=== PATIENT | male | born 1950 | race Caucasian/White ===

== ENCOUNTER 2018-09-25 09:37 | Emergency (ER) | payer OTHER ==
[~2018-09-25] VITALS: Ht 162.6 cm; Wt 73.1 kg
[2018-09-25 09:42] VITALS: Ht 162.6 cm; Wt 73.1 kg
[2018-09-25] MEDS ORDERED: DIATR MEGLU/DIATRIZOATE SODIUM 120 ML BTL ONE (10:45)
[2018-09-25] MEDS ORDERED: DIATR MEGLU/DIATRIZOATE SODIUM 30 ML SOLUTION PO ONE (11:00)
--- NOTE | 2018-09-25 13:03 | ERD ---
ER Documentation Chief Complaint Chief Complaint G Tube came out this am. BS 101, pt feels BP &BS is low HPI 67-year-old gentleman history of prior stroke with G-tube who states that his G- tube came out this morning. Patient states that he feels like his blood glucose is low but blood sugar is 101. Patient denies any fevers chills chest pain or shortness of breath. No other issues today. ROS All systems reviewed and are negative except as per history of present illness. PMhx/Soc History of Surgery: Yes (R SALIVARY GLAND SURGERY, SKIN GRAFT, G-TUBE) Smoking Status: Former smoker FmHx Family History: No diabetes Physical Exam Vitals Vital Signs Date Temp Pulse Resp B/P (MAP) Pulse Ox O2 O2 Flow FiO2 Time Delivery Rate 09/25/18 97.5 79 18 (48) 98 09:42 Physical Exam General: Well developed, well nourished, no acute distress Head: Normocephalic, atraumatic. Eyes: EOM intact ENT: Moist mucous membranes Neck: Full ROM Respiratory: No respiratory distress Cardiovascular: Well perfused distally Abdominal: Nondistended, G-tube slightly dislodged but within the office, nontender no rebound or guarding : Deferred MSK: No edema, no unilateral swelling Neurologic: Alert and oriented, normal speech Skin: No rash Psych: Normal mood Results 24 hrs Laboratory Tests Test 09/25/18 09:44 09/25/18 11:31 Bedside Glucose 101 mg/dL 101 mg/dL Current Medications Medications Dose Sig/Errol Start Time Status Last (Trade) Ordered Route PRN Stop Time Admin Dose Reason Admin Diatrizoate 30 ml ONCE ONCE 09/25/18 DC Meglum/ PO 11:00 09/25/18 Diatrizoate 11:01 Sod (Gastrografin 66-10 Solution) Diatrizoate 120 ml STK-MED 09/25/18 DC Meglum/ ONCE .ROUTE 10:45 09/25/18 Diatrizoate 10:46 Sod (Gastrografin 66-10 Solution) Procedures/MDM G Tube Insertion: Consent: Informed consent was provided as we discussed risks, benefits, alternatives. Indication: Malfunctioning G Tube G Tube Size: 18 Belgian Procedure: Sterile procedure was observed. The new G-tube was checked for leaks and was lubricated. Insertion of the new G-tube through stoma was performed without complications and met no resistance. The balloon was then inflated, the tube was pulled back and plastic wheel was adjusted to the skin. The G-tube was then dressed and secured in place. A postplacement x-ray with water-soluble contrast was ordered. There were no complications and the patient tolerated the procedure well. X-ray Abdomen 1V Interpreted by me: Free Air: None Bowel Gas: Intraluminal Gastrografin Soft Tissue: Normal MEDICAL DECISION MAKING: The patient presents needing a replacement of his G-tube. G-tube was replaced. The patient was fed. At this point the patient has no evidence of emergent medi madeleine condition. He can be safely discharged with primary care follow-up. CONSULTATION: None DISPOSITION PLAN: The patient does not have an identifiable emergent medical condition that warrants inpatient hospitalization at this time. The patient is deemed safe for discharge with outpatient follow-up. We discussed follow up with the patient's primary care doctor within 24 to 48 hours as needed. We also discussed return to the emergency room for worsening symptoms or worsening condition. Outpatient referral: None required Discharge Medications: None required Departure Diagnosis: Primary Impression: Encounter for feeding tube placement Condition: Stable Patient Instructions: Feeding Tube Replacement Additional Instructions: Call your primary care doctor TOMORROW for an appointment during the next 1 WEEK.Tell the solution consultant that you were referred from this facility.See the doctor sooner or return here if your condition worsens before your appointment time. LEANN ACHARYA MD Sep 25, 2018 13:03
[2018-09-25 13:05] VITALS: BP 120/50; PULSE 102; RESP 18
== END 2018-09-25 13:05 | disposition home or self-care (01) ==
LOC: E/R 09:37
DX: K94.23 Gastrostomy malfunction (principal)
CPT/HCPCS: 74018; 82962

== ENCOUNTER 2018-12-03 09:47 | Emergency (ER) | payer OTHER ==
[~2018-12-03] VITALS: Ht 165.1 cm; Wt 68.5 kg
[2018-12-03 09:52] VITALS: Ht 165.1 cm; Wt 68.5 kg
[2018-12-03] MEDS ORDERED: METO-336 PO (10:59)
[2018-12-03] MEDS ORDERED: METF100010 PO (11:03)
[2018-12-03] MEDS ORDERED: DIGO250T PO (11:04)
[2018-12-03] MEDS ORDERED: GLIM4TAB PO (11:05)
[2018-12-03] MEDS ORDERED: FENO160T13 PO (11:05)
[2018-12-03] MEDS ORDERED: PIOG30TA71 PO (11:05)
[2018-12-03] MEDS ORDERED: LISI40TA3 PO (11:06)
[2018-12-03] MEDS ORDERED: ATOR10TA65 PO (11:06)
[2018-12-03 11:17] VITALS: BP 105/88; PULSE 72; RESP 19
--- NOTE | 2018-12-06 12:39 | ERD ---
ER Documentation Chief Complaint Chief Complaint wants gtube replacement HPI This is a 67-year-old male with a known history of CVA the presents to the emergency department stating that the Akira valve on his gastrostomy tube is leaking. Patient had no fevers or shaking or chills. He denies any abdominal pain. Indicates that his Akira valve has been leaking for roughly 12 hours. ROS All systems reviewed and are negative except as per history of present illness. Medications Home Meds Reported Medications Lisinopril* (Lisinopril*) 40 Mg Tablet, 40 MG PO DAILY, #30 TAB 12/03/18 Atorvastatin Calcium (Atorvastatin Calcium) 10 Mg Tablet, 10 MG PO QHS, #30 TAB 12/03/18 Pioglitazone Hcl* (Pioglitazone Hcl*) 30 Mg Tablet, 30 MG PO DAILY, TAB 12/03/18 Glimepiride* (Glimepiride*) 4 Mg Tablet, 4 MG PO WITH BREAKFAST, TAB 12/03/18 Fenofibrate, Micronized* (Fenofibrate*) 160 Mg Tablet, 160 MG PO DAILY, TAB 12/03/18 Digoxin* (Digitek*) 250 Mcg Tablet, 0.25 MG PO Q48H, TAB 12/03/18 Metformin Hcl* (Metformin Hcl*) 1,000 Mg Tablet, 1000 MG PO WITH BREAKFAST DINNE, #60 TAB 12/03/18 Metoprolol Succinate* (Toprol XL*) 100 Mg Tab.sr.24h, 100 MG PO BID, #30 TAB 12/03/18 Allergies Allergies: Coded Allergies: No Known Allergy (Unverified , 12/03/18) PMhx/Soc History of Surgery: Yes (R SALIVARY GLAND SURGERY, SKIN GRAFT, G-TUBE) Hx Alcohol Use: No Hx Substance Use: No Hx Tobacco Use: No Smoking Status: Never smoker Physical Exam Vitals Vital Signs Date Temp Pulse Resp B/P (MAP) Pulse Ox O2 O2 Flow FiO2 Time Delivery Rate 12/03/18 98.1 72 19 105/88 100 Room Air 11:17 (94) 12/03/18 98.3 105 20 109/81 96 09:52 (90) Physical Exam Constitutional:Well-developed. Well-nourished. Respiratory: Not using accessory muscles of respiration.Lungs were clear to auscultation bilaterally. No rhonchi. No rales. No wheezing. Cardiovascular: Regular rate regular rhythm.No murmurs. No rubs were appreciated.S1, S2 normal. Distal pulses are palpable 2+ bilaterally. GI: Abdomen was soft. Gastrostomy tube was in place and surrounding ostomy site was clean dry and intact with no purulent drainage. Akira valve was leaking around the connection site of the tubing. Muscle skeletal: Full range of motion of both the upper and lower extremities bilaterally.Normal muscle tone.No assymetrical calf tenderness or swelling. Skin: No petechia, no purpura. No lesions on the palms or the soles of the feet. No maculopapular rash. NEURO: Patient was alert and awake and able to ambulate with a slow steady gait. Patient has difficulty articulating his words due to previous cerebrovascular accident. Procedures/MDM This 67-year-old male presented to the emergency department with complications of his gastrostomy tube. The G-tube however was in good position. The Akira valve was replaced by myself and nursing staff. Afterwards the patient was able to feed without any difficulty and the tube was working. The patient was discharged home in fair condition. They were instructed to return to the emergency department at any time if there was any worsening of their condition. The patient stated they would follow up with their PCP in the next 24-48 hours to initiate a suitable medication regimen under the care of their PCP as well as to allow their PCP to monitor any drug reactions. The patient was discharged home with prescriptions after they gave informed consent to the new medication. They were also fully informed by myself on the adverse effects and adverse drug interactions in order to provide adequate safeguards to prevent possible adverse reactions to medications. Departure Diagnosis: Primary Impression: Encounter for gastrojejunal tube placement Condition: Fair Patient Instructions: Gastrostomy or Gastro-jejunum Tube: Flushing the Tube Referrals: RADHA DOBBINS MD (PCP) DAVID OLIVEIRA MD Dec 06, 2018 12:39
== END 2018-12-03 11:18 | disposition home or self-care (01) ==
LOC: E/R 09:47
DX: Z46.59 Encounter for fitting and adjustment of other gastrointestinal appliance and device (principal); Z79.84 Long term (current) use of oral hypoglycemic drugs; Z86.73 Personal history of transient ischemic attack (TIA), and cerebral infarction without residual deficits
CPT/HCPCS: 99283

== ENCOUNTER 2018-12-11 11:14 | Inpatient (IN) | payer OTHER ==
[~2018-12-11] VITALS: Ht 165.1 cm; Wt 72.4 kg
[2018-12-11] VITALS (25 sets, daily range): BP systolic 82–111; BP diastolic 55–75; PULSE 77–108; RESP 17–32; Ht 165.1 cm; Wt 72.4 kg
[~2018-12-11 11:14] MED LIST: ATOR10TA65 PO; DIGO250T PO; FENO160T13 PO; GLIM4TAB PO; LISI40TA3 PO; METF100010 PO; METO-336 PO; PIOG30TA71 PO
[2018-12-11] MEDS ORDERED: AZITHROMYCIN 500MG/NS (PMX) 250 ML IV STA (12:00)
[2018-12-11] MEDS ORDERED: CEFTRIAXONE 1 GM/50 ML (PMX) 50 ML IVPB STA (12:00)
[2018-12-11] MEDS ORDERED: SODIUM CHLORIDE 0.9% 1L BAG IV* STA (12:21)
[2018-12-11] MEDS ORDERED: SOD CHLORIDE 0.9% 1,000 ML IV STA (13:17)
[2018-12-11] MEDS ORDERED: ALBUTEROL 0.083% (NEB) 2.5 MG/3 ML AMP HHN STA (13:17)
[2018-12-11] MEDS ORDERED: ACETAMINOPHEN 325 MG TAB PO PRN (13:30)
[2018-12-11] MEDS ORDERED: ONDANSETRON 4 MG INJ IV PRN ×3 (13:30→16:00)
[2018-12-11] MEDS ORDERED: IPRATROPIUM (NEB) 0.5 MG/2.5 ML AMP HHN ONE (13:30)
[2018-12-11] MEDS ORDERED: NORepinephrine 8MG/250 ML (PMX 250 ML IV STA (13:58)
[2018-12-11] MEDS ORDERED: LIDOCAINE 1% (MPF) 5 ML VIAL SC ONE (14:00)
--- NOTE | 2018-12-11 14:40 | ERD ---
ER Documentation Chief Complaint Chief Complaint difficulty breathing, cough, fever at home HPI Patient is a 68-year-old male with a history of hypertension and diabetes who presents saying "I have pneumonia and I need suction". The patient said that he has been passing out over the last few weeks as well. He says that he can "feel pneumonia" and had fevers at home. He has had cough for the past few weeks ever since his "cancer surgery". 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 Upon review of old medical records this is the patient's third visit to the ER since September 2018. Review of the emergency department information exchange system shows visits to 2 separate emergency departments for a total of 4 visits over the past 1 year. His doctor is Dr. Chung. ROS All systems reviewed and are negative except as per history of present illness. Medications Home Meds Reported Medications Lisinopril* (Lisinopril*) 40 Mg Tablet, 40 MG PO DAILY, #30 TAB 12/03/18 Atorvastatin Calcium (Atorvastatin Calcium) 10 Mg Tablet, 10 MG PO QHS, #30 TAB 12/03/18 Pioglitazone Hcl* (Pioglitazone Hcl*) 30 Mg Tablet, 30 MG PO DAILY, TAB 12/03/18 Glimepiride* (Glimepiride*) 4 Mg Tablet, 4 MG PO WITH BREAKFAST, TAB 12/03/18 Fenofibrate, Micronized* (Fenofibrate*) 160 Mg Tablet, 160 MG PO DAILY, TAB 12/03/18 Digoxin* (Digitek*) 250 Mcg Tablet, 0.25 MG PO Q48H, TAB 12/03/18 Metformin Hcl* (Metformin Hcl*) 1,000 Mg Tablet, 1000 MG PO WITH BREAKFAST DINNE, #60 TAB 12/03/18 Metoprolol Succinate* (Toprol XL*) 100 Mg Tab.sr.24h, 100 MG PO BID, #30 TAB 12/03/18 Allergies Allergies: Coded Allergies: No Known Allergy (Unverified , 12/11/18) PMhx/Soc History of Surgery: Yes (R SALIVARY GLAND SURGERY, SKIN GRAFT, G-TUBE, tracheo stomy, vocal cords) Hx Cardiac Disorders: Yes (htn, cholesterol) Hx Miscellaneous Medical Probl: Yes (dysphagia) Hx Alcohol Use: No Hx Substance Use: No Hx Tobacco Use: No Smoking Status: Never smoker FmHx Family History: diabetes Physical Exam Vitals Vital Signs Date Temp Pulse Resp B/P (MAP) Pulse Ox O2 O2 Flow FiO2 Time Delivery Rate 12/11/18 97 27 76/47 (57) 3 Nasal 13:45 Cannula 12/11/18 95 24 100 21 13:27 12/11/18 Nasal 3 12:28 Cannula 12/11/18 97.9 94 22 102/57 92 11:20 (72) Physical Exam Const: Moderate distress Head: Atraumatic Eyes: Normal Conjunctiva ENT: Normal External Ears, Nose and Mouth. Neck: Full range of motion. No meningismus. Resp: Rhonchorous breath sounds bilaterally Cardio: Atrial fibrillation with rapid ventricular response Abd: Soft, non tender, non distended. Normal bowel sounds Skin: No petechiae or rashes Back: No midline or flank tenderness Ext: No cyanosis, or edema Neur: Awake and alert, right-sided facial droop ever since his facial surgery Result Diagram: 12/11/18 1228 12/11/18 1228 Results 24 hrs Laboratory Tests Test 12/11/18 12:27 12/11/18 12:28 POC Venous Lactate 1.2 mmol/L White Blood Count 32.0 10^3/ul Red Blood Count 4.80 10^6/ul Hemoglobin 12.9 g/dl Hematocrit 39.7 % Mean Corpuscular Volume 82.7 fl Mean Corpuscular Hemoglobin 26.9 pg Mean Corpuscular Hemoglobin Concent 32.5 g/dl Red Cell Distribution Width 16.4 % Platelet Count 256 10^3/UL Mean Platelet Volume 11.6 fl Immature Granulocytes % 0.600 % Neutrophils % % Segmented Neutrophils % (Manual) 88 % Band Neutrophils % (Manual) 7 % Lymphocytes % % Monocytes % % Monocytes % (Manual) 5 % Eosinophils % % Basophils % % Nucleated Red Blood Cells % 0.0 /100WBC Immature Granulocytes # 0.190 10^3/ul Neutrophils # 10^3/ul Neutrophils # (Manual) 28.9 10^3/ul Band Neutrophils # 2.2 10^3/ul Lymphocytes # 10^3/ul Monocytes # 10^3/ul Monocytes # (Manual) 1.6 10^3/ul Eosinophils # 10^3/ul Basophils # 10^3/ul Nucleated Red Blood Cells # 10^3/ul Platelet Estimate NORMAL Anisocytosis 1+ Microcytosis 1+ Sodium Level 136 mmol/L Potassium Level 4.8 mmol/L Chloride Level 95 mmol/L Carbon Dioxide Level 26 mmol/L Anion Gap 15 Blood Urea Nitrogen 83 mg/dl Creatinine 1.59 mg/dl Est Glomerular Filtrat Rate mL/min 44 mL/min Glucose Level 114 mg/dl Calcium Level 10.3 mg/dl Current Medications Medications Dose Sig/Errol Start Time Status Last (Trade) Ordered Route PRN Stop Time Admin Dose Reason Admin Azithromycin 250 ml @ ONCE STAT 12/11/18 DC 12/11/18 250 mls/hr IV 12:00 13:00 12/11/18 12:59 Ceftriaxone 50 ml @ ONCE STAT 12/11/18 DC 12/11/18 Sodium 100 mls/hr IVPB 12:00 12:41 12/11/18 12:29 Sodium 2,110 ml BOLUS OVER 2 12/11/18 DC 12/11/18 Chloride HOURS STAT 12:21 12:31 (NS) IV* 12/11/18 12:22 Sodium 1,000 ml @ Q1H STAT 12/11/18 DC 12/11/18 Chloride 1,000 mls/hr IV 13:17 14:08 12/11/18 14:16 Albuterol 5 mg ONCE STAT 12/11/18 DC 12/11/18 (Proventil HHN 13:17 13:26 0.083% (Neb)) 12/11/18 13:18 Ipratropium 0.5 mg ONCE ONCE 12/11/18 DC 12/11/18 [place] HHN 13:30 13:26 (Atrovent 12/11/18 13:31 0.02% (Neb)) Ondansetron 4 mg ER BRIDGE 12/11/18 HCl (Zofran PRN IV 13:30 Inj) NAUSEA/VOMITI 12/12/18 13:29 NG 650 mg ER BRIDGE 12/11/18 Acetaminophen PRN PO 13:30 (Tylenol .MILD PAIN 12/12/18 13:29 Tab) 1-3 OR TEMP Lidocaine 5 ml ONCE ONCE 12/11/18 DC (Xylocaine SC 14:00 1% (Mpf)) 12/11/18 14:01 250 ml @ ONCE STAT 12/11/18 Norepinephrin 7.5 mls/hr IV 13:58 e 6/25/19 23:17 Procedures/MDM EKG read by me: Rate/Rhythm: Atrial fibrillation with rapid ventricular response a rate of 106 Intervals: Normal Impression: A. fib with RVR Chest X-ray 1V Interpreted by me: Soft Tissue: No acute abnormalities Bones: No acute abnormalities Mediastinum/Cardiac Silhouette/Lungs: Pneumonia Sepsis Documentation: Patient's infectious symptoms have not stabilized and the patient is at risk of rapid decompensation. The patient will be admitted for careful hydration, antibiotic therapy, and infectious source control. SEVERE SEPSIS CRITERIA: Infectious source: Pneumonia End organ damage indicated by: Hypotension despite fluid bolus SEPSIS MANAGEMENT Time of recognition of sepsis: 1228. Time of recognition of severe sepsis: 1345. Time of recognition of septic shock: 1345. 3 HOUR BUNDLE Blood cultures x 2 before broad-spectrum antibiotics: Yes 30 ml/kg NS bolus completed Initial lactate 1.2 Repeat lactate pending SEPTIC SHOCK ASSESSMENT: No lactic acid > 4.0 Yes Persistent hypotension (SBP < 90 or 40 mmHg drop, MAP < 65) despite 30 mL/kg IV fluid bolus VOLUME REASSESSMENT FOR SEPTIC SHOCK: Reevaluation Time: 1345 Temp 97.9, BP 76/47, HR 97, RR 27, Pox 100% Heart regular rate & rhythm Lungs no crackles Skin warm & dry Cap Refill less than 2 seconds Peripheral pulses radially present PERSISTENT HYPOTENSION TREATMENT: Comfort care no Central line right femoral line placed Vasopressor started levophed Central Line Placement by me: Patient consented, sterilely draped, full prep, gown, glove, mask, time out performed. Anesthesia: 1% lidocaine locally Location: Right femoral Device: Multiple lumen Technique: Seldinger technique. Secured with suture. Results: Venous return from all ports with easy saline flush. No complications. Guide wire retrieved and disposed of. ED Ultrasound: Central line placed by me using concurrent ultrasound guidance. Ultrasound printer not working at this time so images could not be printed. I considered further perfusion assessment with CVP measurement, SCVO2, bedside ultrasound volume assessment, passive leg raise, trial of further fluid bolus. And proceeded with 30 ml/kg fluid bolus of NSS, broad spectrum antibiotics, and admission. The patient will be admitted to the care of the panel team to the intensive care unit given the need for pressors. CRITICAL CARE Critical care time 35 minutes Emergent fluid management while maintaining close respiratory support. Provision of immediate and broad-spectrum antibiotic therapy. Simultaneous assessment for possible sources in order to direct targeted therapy. Consideration for invasive and chemical support to prevent cardiopulmonary collapse. Critical care time is independent of procedures performed. Departure Diagnosis: Primary Impression: Septic shock Additional Impression: Pneumonia Pneumonia type: due to unspecified organism Laterality: unspecified laterality Lung location: unspecified part of lung Qualified Codes: J18.9 - Pneumonia, unspecified organism Condition: Critical MON[place]NA PATEL MD Dec 11, 2018 14:40
[2018-12-11] MEDS ORDERED: VANCOMYCIN IV PER PHARMACY XX SCH (15:30)
[2018-12-11] MEDS ORDERED: MEROPENEM 1 GM/50ML(PMX) 50 ML IVPB SCH (15:30)
[2018-12-11] MEDS ORDERED: VANCOMYCIN HCL 1.5 GM in SOD CHLORIDE 0.9% 250 ML IVPB ONE (16:00)
[2018-12-11] MEDS ORDERED: ACETAMINOPHEN 650MG/20.3ML CUP PO PRN (16:00)
[2018-12-11] MEDS ORDERED: AZITHROMYCIN 500MG/NS (PMX) 250 ML IVPB SCH (16:00)
[2018-12-11] MEDS ORDERED: NORepinephrine 8MG/250 ML (PMX 250 ML IV SCH ×4 (16:00→19:30)
[2018-12-11] MEDS ORDERED: NITROGLYCERIN (SL) 0.4 MG TAB SL PRN (16:00)
[2018-12-11] MEDS ORDERED: NACL 0.9% 3 ML SYG IV SCH (16:00)
[2018-12-11] MEDS ORDERED: IPRATROPIUM (NEB) 0.5 MG/2.5 ML AMP NEB PRN (16:00)
--- NOTE | 2018-12-11 16:18 | HP ---
Date/Time of Note Date/Time of Note DATE: 12/11/18 TIME: 16:04 Assessment/Plan VTE Prophylaxis Pharmacological prophylaxis: heparin Lines/Catheters IV [facility] Saline Lock Assessment/Plan Hospital Course SUBJECTIVE: Seen and evaluated patient in the emergency room 2. Currently not in acute distress. OBJECTIVE: Vital signs-see below PHYSICAL EXAM: Constitutional: Frail looking male,not in acute distress. HEENT: Head atraumatic and normocephalic. Eyes: Extraocular muscles intact. Anicteric sclerae. Pupils equal bilaterally, reactive to light. NECK: +jvp. Supple without lymph node. CHEST: Diminished bibasilar. No wheezing or rales HEART: S1, S2. Regular rate and rhythm. ABDOMEN: Soft/non tender with no rebound tenderness. Bowel sounds were present. EXTREMITIES: No cyanosis, clubbing or edema. NEUROLOGIC: Alert and oriented x3. No focal deficit. No sensory deficit. PSYCHOSOCIAL: No signs of depression. INTEGUMENTARY: No open wounds. ASSESSMENT AND PLAN: 68 yo M w/htn,hld,dm2,salivary gland sx here w/cough/conges tion/weakness found to have sepsis w/septic shock Severe sepsis with septic shock most suspect source:pneumonia -Admit to ICU -Levophed gtt to keep MAP 65 and above -IV fluids-echo to assess EF -broad spectrum abx -cultures -consider ID involvement if no improvement ~24 hrs Pneumonia -bronchodilators -abx (Merrem/vanco +Zithromax for atypical coverage) -f/u Xrays -resp cs -aspiration precaution SCOT likely secondary to sepsis -Fluids -monitor renal fxn DM2 -A1C -basal/bolus HTN -currently hypotensive-Hold antihypertensives Dyslipidemia -on statin Atrial fibrillation -rate controlled -resume dig. hold BB 2/2 hypotension Hx Salivary gland tumor. s/p surgery Incontinence -Insert rodriguez dvt ppx;heparin PUD ppx:Pepcid Rest of the management depend on hospital course Approximately 60mins critical care time spent on this H&P Patient was seen and examined with with above plan. Result Diagram: 12/11/18 1228 12/11/18 1228 Results 24hrs Laboratory Tests Test 12/11/18 12:27 12/11/18 12:28 12/11/18 15:05 POC Venous Lactate 1.2 White Blood Count 32.0 H Red Blood Count 4.80 Hemoglobin 12.9 L Hematocrit 39.7 L Mean Corpuscular Volume 82.7 Mean Corpuscular Hemoglobin 26.9 L Mean Corpuscular Hemoglobin Concent 32.5 Red Cell Distribution Width 16.4 H Platelet Count 256 Mean Platelet Volume 11.6 H Immature Granulocytes % 0.600 H Neutrophils % Segmented Neutrophils % (Manual) 88 H Band Neutrophils % (Manual) 7 H Lymphocytes % Monocytes % Monocytes % (Manual) 5 Eosinophils % Basophils % Nucleated Red Blood Cells % 0.0 Immature Granulocytes # 0.190 H Neutrophils # Neutrophils # (Manual) 28.9 H Band Neutrophils # 2.2 H Lymphocytes # Monocytes # Monocytes # (Manual) 1.6 H Eosinophils # Basophils # Nucleated Red Blood Cells # Platelet Estimate NORMAL Anisocytosis 1+ Microcytosis 1+ Sodium Level 136 Potassium Level 4.8 Chloride Level 95 L Carbon Dioxide Level 26 Anion Gap 15 H Blood Urea Nitrogen 83 H Creatinine 1.59 H Est Glomerular Filtrat Rate mL/min 44 L Glucose Level 114 Calcium Level 10.3 H Lactic Acid Level 1.1 HPI/ROS Admit Date/Time Admit Date/Time Hx of Present Illness This is a 68-year-old male with a history of diabetes, hypertension, dyslipidemia, atrial fibrillation, 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 Patient also reported that he has been feeling having a pneumonia and has been having fevers for a while. Patient was feeling overly tired and has been passing out lately. Patient also has had multiple emergency visit lately. He denied loss of consciousness, speech difficulties, vision changes, numbness, tingling, headache, nausea, vomiting, abdominal pain, or other constitutional symptoms. In the emergency room, patient was noted with the initial white count 32,000, BUN 83, creatinine 1.59. Chest x-ray showed bibasilar atelectasis. In the emergency room, patient was noted with hypotension despite sepsis fluid bolus requiring central line insertion and Levophed administration. He was also given azithromycin and ceftriaxone. ROS 12 point review of system was assessed and is negative other than what is mentioned in the HPI. PMH/Family/Social Past Medical History See HPI Medications Current Medications Ondansetron HCl (Zofran Inj) 4 mg ER BRIDGE PRN IV NAUSEA/VOMITING; Start 12/11/18 at 13:30; Stop 12/12/18 at 13:29 Acetaminophen (Tylenol Tab) 650 mg ER BRIDGE PRN PO .MILD PAIN 1-3 OR TEMP; Start 12/11/18 at 13:30; Stop 12/12/18 at 13:29 Norepinephrine 250 ml @ 7.5 mls/hr ONCE STAT IV Last administered on 12/11/18at 14:38; Admin Dose 7.5 MLS/HR; Start 12/11/18 at 13:58; Stop 12/12/18 at 23:17 Vancomycin HCl (Vanco Iv Per Pharmacy) VANCOMYCIN PER PHARMACY PER PROTOCOL XX ; Start 12/11/18 at 15:30; Status UNV Meropenem/Sodium Chloride 50 ml @ 100 mls/hr Q8 IVPB ; Start 12/11/18 at 15:30 Atorvastatin Calcium (Lipitor) 10 mg QHS PO ; Start 12/11/18 at 21:00; Status UNV Digoxin (Digoxin) 0.25 mg Q48H PO ; Start 12/11/18 at 16:00; Status UNV Metoprolol Succinate (Toprol Xl) 100 mg BID PO ; Start 12/11/18 at 21:00; Status UNV Miscellaneous Information 160 mg DAILY PO ; Start 12/12/18 at 09:00; Status UNV Vancomycin HCl 1.5 gm/Sodium Chloride 250 ml @ 83.333 mls/ hr LOADING DOSE ONCE IVPB ; Start 12/11/18 at 16:00; Stop 12/11/18 at 18:59 Coded Allergies: No Known Allergy (Unverified , 12/11/18) Past Surgical History See HPI Social History Denied history of alcohol, smoking or illicit drug use Smoking Status: Never smoker Exam/Review of Systems Vital Signs Vitals Vital Signs Date Temp Pulse Resp B/P (MAP) Pulse Ox O2 O2 Flow FiO2 Time Delivery Rate 12/11/18 97 23 98/73 (81) 23 Nasal 3.0 15:00 Cannula 12/11/18 13:27 12/11/18 97.9 11:20 HUGH MCDOWELL NP Dec 11, 2018 16:14
[2018-12-11] MEDS: IPRATROPIUM (NEB) 0.5 MG/2.5 ML AMP NEB SCH ×2 (16:45→20:33)
[2018-12-11] MEDS: LEVALBUTEROL (NEB) 1.25 MG/0.5 ML AMP HHN SCH ×2 (16:45→20:33)
[2018-12-11] MEDS ORDERED: DEXTROSE 50% 50 ML SYRINGE IV PRN ×2 (17:00)
[2018-12-11] MEDS ORDERED: GLUCAGON 1 MG INJ IM PRN (17:00)
[2018-12-11] MEDS ORDERED: GLUCOSE GEL 15 GRAM TUBE PO PRN ×2 (17:00)
[2018-12-11] MEDS ORDERED: GLUCOSE GEL 15 GRAM TUBE BUCCAL PRN (17:00)
[2018-12-11] MEDS: SOD CHLORIDE 0.9% 1,000 ML IV SCH (17:15)
[2018-12-11] MEDS ORDERED: INSULIN ASPART [NOVOLOG] 3 ML PEN SC SCH (18:00)
[2018-12-11] MEDS: ATORVASTATIN 10 MG TAB PO SCH (20:42)
[2018-12-11] MEDS: INSULIN ASPART [NOVOLOG] 3 ML PEN SC SCH (20:43)
[2018-12-11] MEDS: HEPARIN 5,000 UNIT/1 ML VIAL SC SCH (20:44)
[2018-12-11] MEDS ORDERED: FAMOTIDINE 20 MG INJ IV SCH (21:00)
[2018-12-11] MEDS ORDERED: METOPROLOL (XL) 100 MG TAB PO SCH (21:00)
[2018-12-11] MEDS: DIGOXIN 0.25 MG TAB PO SCH (21:41)
[2018-12-12] VITALS (82 sets, daily range): BP systolic 89–127; BP diastolic 27–103; PULSE 78–116; RESP 19–32
[2018-12-12] MEDS: INSULIN ASPART [NOVOLOG] 3 ML PEN SC SCH ×6 (00:14→20:09)
[2018-12-12] MEDS: IPRATROPIUM (NEB) 0.5 MG/2.5 ML AMP NEB SCH ×6 (00:42→20:22)
[2018-12-12] MEDS: LEVALBUTEROL (NEB) 1.25 MG/0.5 ML AMP HHN SCH ×6 (00:42→20:22)
[2018-12-12] MEDS ORDERED: ACCU-CHEK XX SCH (02:00)
[2018-12-12] MEDS: MEROPENEM 1 GM/50ML(PMX) 50 ML IVPB SCH ×2 (04:09→15:08)
[2018-12-12] MEDS: SOD CHLORIDE 0.9% 1,000 ML IV SCH ×2 (04:10→18:53)
[2018-12-12] MEDS: POTASSIUM CHLORIDE 100 ML IVPB SCH ×2 (07:10→09:56)
[2018-12-12] MEDS ORDERED: MAGNESIUM SULFATE 2 GM/50 ML 50 ML IVPB ONE (07:30)
[2018-12-12] MEDS ORDERED: INSULIN GLARGINE [LANTus] (100 UNITS/ML) SYG SC SCH (08:00)
[2018-12-12] MEDS ORDERED: NON-FORMULARY/PATIENT OWN MED (Fenofibrate, Micronized* (Fenofibrate*) 160 MG) PO SCH (09:00)
--- NOTE | 2018-12-12 09:10 | PN ---
Date/Time of Note Date/Time of Note DATE: 12/12/18 TIME: 09:01 Assessment/Plan VTE Prophylaxis Risk score (from Ns)>0 risk: 9 SCD applied (from Nsg): Yes Pharmacological prophylaxis: heparin Lines/Catheters IV Catheter Type (from Nrsg): Central Line Central line still needed: Yes Assessment/Plan Assessment/Plan 68 yo man history of HTN, HLD, DM2, salivary gland cancer s/p resection presents with cough, dyspnea, and weakness found to be in septic shock. #Severe sepsis with septic shock - Most likely aspiration pneumonia. Patient reports choking on soft foods followed by productive cough and fever. - CXR however relatively clear, only minor bibasilar atelectasis - Admitted to ICU on norepinephrine, now weaned off - Vanco and azithro until cultures grow out. #Dysphagia #Aspiration pneumonia - Speech therapy eval - May need video swallow eval. # SCOT - likely secondary to sepsis - now resolved # DM2 -A1C only 5.2 -sliding scale only #HTN -holding antihypertensives for now. #Dyslipidemia -on statin #Atrial fibrillation -rate controlled -resume dig. hold BB 2/2 hypotension - Not on anticoagulation. #Salivary gland malignancy - s/p surgery at [facility] in Jul [address] Huitron # Incontinence - Catherine on admission. Will do trial of void. Patient denies incontinence. dvt ppx;heparin PUD ppx:Pepcid Approximately 4 0mins critical care time spent on this patient Result Diagram: 12/12/18 0430 12/12/18 0430 Subjective 24 Hr Interval Summary Free Text/Dictation No acute overnight events. Weaned off norepinephrine. Still hypoxemic requiring nasal cannula. Exam/Review of Systems Exam Vitals Vital Signs Date Temp Pulse Resp B/P (MAP) Pulse Ox O2 O2 Flow FiO2 Time Delivery Rate 12/12/18 97 26 106/66 98 Nasal 07:00 (79) Cannula 12/12/18 2.0 05:14 12/12/18 98.0 04:00 12/11/18 28 16:46 Intake and Output 12/11/18 12/11/18 12/12/18 1515:00 23:00 07:00 IntakeIntake Total 2410 ml 1753.866 ml 765.4 ml OutputOutput Total 1500 ml 1050 ml BalanceBalance 2410 ml 253.866 ml -284.6 ml Exam Constitutional: Frail looking male,not in acute distress. HEENT: Head atraumatic and normocephalic. Eyes: Extraocular muscles intact. Anicteric sclerae. Pupils equal bilaterally, reactive to light. NECK: R neck skin graft healthy appearing. CHEST: Coarse bibasilar breath sounds. HEART: S1, S2. Irregularly irregular ABDOMEN: Soft/non tender with no rebound tenderness. Bowel sounds were present. G tube in place clean appearing. EXTREMITIES: No cyanosis, clubbing or edema. SKIN: L anterior thigh skin graft site well healed. Results Results 24hrs Laboratory Tests Test 12/11/18 12:27 12/11/18 12:28 12/11/18 15:05 12/11/18 15:53 POC Venous 1.2 Lactate White Blood Count 32.0 H Red Blood Count 4.80 Hemoglobin 12.9 L Hematocrit 39.7 L Mean Corpuscular 82.7 Volume Mean Corpuscular 26.9 L Hemoglobin Mean Corpuscular 32.5 Hemoglobin Concen t Red Cell 16.4 H Distribution Width Platelet Count 256 Mean Platelet 11.6 H Volume Immature 0.600 H Granulocytes % Neutrophils % Segmented 88 H Neutrophils % (Manual) Band Neutrophils 7 H % (Manual) Lymphocytes % Monocytes % Monocytes % 5 (Manual) Eosinophils % Basophils % Nucleated Red 0.0 Blood Cells % Immature 0.190 H Granulocytes # Neutrophils # Neutrophils # 28.9 H (Manual) Band Neutrophils 2.2 H # Lymphocytes # Monocytes # Monocytes # 1.6 H (Manual) Eosinophils # Basophils # Nucleated Red Blood Cells # Platelet Estimate NORMAL Anisocytosis 1+ Microcytosis 1+ Sodium Level 136 Potassium Level 4.8 Chloride Level 95 L Carbon Dioxide 26 Level Anion Gap 15 H Blood Urea 83 H Nitrogen Creatinine 1.59 H Est Glomerular 44 L Filtrat Rate mL/min Glucose Level 114 Hemoglobin A1c 5.2 Calcium Level 10.3 H Lactic Acid Level 1.1 Blood Gas Blood arterial Specimen Source Arterial Blood 12/11/2018 4:10:0 Date Drawn 0 PM Arterial Blood pH 7.363 (Temp corrected) Arterial Blood 39.5 pCO2 (Temp correct) Arterial Blood 75.1 L pO2 (Temp corrected) Arterial Blood 22.0 HCO3 Arterial Blood -3.1 L Base Excess Arterial Blood 93.2 L Oxygen Saturation Aneesh Test ACCEPTAB Arterial Blood Right Radial Gas Puncture Site Arterial 0.1 Blood Carboxyhemo globin Arterial Blood 0.2 Methemoglobin Blood Gas A-a O2 70.7 H Differential Oxyhemoglobin 92.9 L Percent Blood Gas 37.0 Temperature Blood Gas NASAL CANNULA Modality FiO2 27.0 Blood Gas [facility] Notified Whom Blood Gas 12/11/2018 4:21:4 Notified Time 4 PM Test 12/11/18 18:48 12/11/18 20:42 12/12/18 00:13 12/12/18 04:09 Lactic Acid Level 1.1 Bedside Glucose 94 79 90 Test 12/12/18 04:30 White Blood Count 22.8 #H Red Blood Count 3.73 #L Hemoglobin 10.0 #L Hematocrit 31.3 #L Mean Corpuscular 83.9 Volume Mean Corpuscular 26.8 L Hemoglobin Mean Corpuscular 31.9 L Hemoglobin Concen t Red Cell 16.8 H Distribution Width Platelet Count 196 # Mean Platelet 12.8 H Volume Immature 0.600 H Granulocytes % Neutrophils % 89.7 H Lymphocytes % 4.7 L Monocytes % 3.9 Eosinophils % 0.8 Basophils % 0.3 Nucleated Red 0.0 Blood Cells % Immature 0.140 H Granulocytes # Neutrophils # 20.4 H Lymphocytes # 1.1 Monocytes # 0.9 Eosinophils # 0.2 Basophils # 0.1 Nucleated Red 0.0 Blood Cells # Sodium Level 144 Potassium Level 3.2 L Chloride Level 105 # Carbon Dioxide 29 Level Anion Gap 10 # Blood Urea 41 #H Nitrogen Creatinine 0.90 Est Glomerular > 60 Filtrat Rate mL/min Glucose Level 85 Calcium Level 8.8 Phosphorus Level 2.5 Magnesium Level 1.8 Total Bilirubin 0.5 Direct Bilirubin 0.00 Indirect 0.5 Bilirubin Aspartate Amino 24 Transf (AST/SGOT) Alanine 28 Aminotransferase (ALT/SGPT) Alkaline 27 L Phosphatase Total Protein 5.4 L Albumin 3.2 L Globulin 2.20 Albumin/Globulin 1.45 Ratio Triglycerides 85 Level Cholesterol Level 80 L LDL Cholesterol, 28 Calculated HDL Cholesterol 35 Cholesterol/HDL 2.2 Ratio Medications Medication Current Medications Vancomycin HCl (Vanco Iv Per Pharmacy) VANCOMYCIN PER PHARMACY PER PROTOCOL XX ; Start 12/11/18 at 15:30 Atorvastatin Calcium (Lipitor) 10 mg QHS PO Last administered on 12/11/18at 20:42; Admin Dose 10 MG; Start 12/11/18 at 21:00 Digoxin (Digoxin) 0.25 mg Q48H PO Last administered on 12/11/18at 21:41; Admin Dose 0.25 MG; Start 12/11/18 at 16:00 Ondansetron HCl (Zofran Inj) 4 mg Q6H PRN IV NAUSEA AND/OR VOMITING; Start 12/11/18 at 16:00 Ipratropium [place] (Atrovent 0.02% (Neb)) 0.5 mg Q4H RESP THERAPY NEB Last administered on 12/12/18at 05:13; Admin Dose 0.5 MG; Start 12/11/18 at 17:00 Ipratropium [place] (Atrovent 0.02% (Neb)) 0.5 mg Q2H RESP THERAPY PRN NEB SHORTNESS OF BREATH; Start 12/11/18 at 16:00 Nitroglycerin (Nitroglycerin (Sl Tab) 0.4 Mg) 1 tab Q5M PRN SL CHEST PAIN; S tart 12/11/18 at 16:00 Acetaminophen (Tylenol Liquid) 650 mg Q6H PRN PO PAIN LEVEL 1-3 OR FEVER; St art 12/11/18 at 16:00 Heparin Sodium (Porcine) (Heparin (5000 Units/1ml)) 5,000 unit Q12 SC Last ad ministered on 12/11/18at 20:44; Admin Dose 5,000 UNIT; Start 12/11/18 at 21:00 Levalbuterol (Xopenex Neb) 1.25 mg Q4H RESP THERAPY HHN Last administered on 12/12/18at 05:13; Admin Dose 1.25 MG; Start 12/11/18 at 17:00 Sodium Chloride 1,000 ml @ 75 mls/hr [id number] IV Last administered on 12/12/18at 04:10; Admin Dose 75 MLS/HR; Start 12/11/18 at 15:53 IV Flush (NS 3 ml) 3 ml PER PROTOCOL IV ; Start 12/11/18 at 16:00 Ondansetron HCl (Zofran Inj) 4 mg Q6H PRN IV NAUSEA/VOMITING; Start 12/11/18 at 16:00 Vancomycin HCl 250 ml @ 125 mls/hr Q24H IVPB ; Start 12/12/18 at 17:00 Fenofibrate (Tricor) 145 mg DAILY PO ; Start 12/12/18 at 09:00 Miscellaneous Information 1 ea NOTE XX ; Start 12/11/18 at 17:00 Glucose (Glutose) 15 gm Q15M PRN PO DECREASED GLUCOSE; Start 12/11/18 at 17:00 Glucose (Glutose) 22.5 gm Q15M PRN PO DECREASED GLUCOSE; Start 12/11/18 at 17:00 Dextrose (D50w Syringe) 25 ml Q15M PRN IV DECREASED GLUCOSE; Start 12/11/18 at 17:00 Dextrose (D50w Syringe) 50 ml Q15M PRN IV DECREASED GLUCOSE; Start 12/11/18 at 17:00 Glucagon (Glucagen) 1 mg Q15M PRN IM DECREASED GLUCOSE; Start 12/11/18 at 17:00 Glucose (Glutose) 15 gm Q15M PRN BUCCAL DECREASED GLUCOSE; Start 12/11/18 at 17 :00 Insulin Aspart (Novolog Insulin Pen) NOVOLOG *MILD* ALGORI... Q4 SC ; Start 12/11/18 at 21:00 Azithromycin 250 ml @ 250 mls/hr Q24H IVPB ; Start 12/12/18 at 12:00 Meropenem/Sodium Chloride 50 ml @ 100 mls/hr Q12H IVPB Last administered on 12/12/18at 04:09; Admin Dose 100 MLS/HR; Start 12/12/18 at 04:00 Norepinephrine 250 ml @ 1.875 mls/ hr TITRATE IV Last administered on 12/12/18at 04:21; Admin Dose 5.625 MLS/HR; Start 12/11/18 at 19:30 Potassium Chloride 100 ml @ 50 mls/hr Q2H IVPB Last administered on 12/12/18at 07:10; Admin Dose 50 MLS/HR; Start 12/12/18 at 07:30; Stop 12/12/18 at 11:29 Magnesium Sulfate 50 ml @ 25 mls/hr ONCE ONCE IVPB Last administered on 12/12/18at 07:11; Admin Dose 25 MLS/HR; Start 12/12/18 at 07:30; Stop 12/12/18 at 09:29 MALIA HERNANDEZ MD Dec 12, 2018 09:10
[2018-12-12] MEDS: FENOFIBRATE 145 MG TAB PO SCH (09:56)
[2018-12-12] MEDS: HEPARIN 5,000 UNIT/1 ML VIAL SC SCH ×2 (10:07→20:10)
[2018-12-12] MEDS ORDERED: AZITHROMYCIN 500MG/NS (PMX) 250 ML IVPB SCH (12:00)
--- NOTE | 2018-12-12 13:57 | RADRPT ---
Echocardiogram Report Patient Name: Ramiro HILL ID: [id number] : 1950 (68y )Study Date: 12/12/2018 7:09:12 AM Gender: Rosycession #: [id number] Tech: Ara Lopez RDCS Location: 117 Ref.Physician: HUGH MCDOWELL Height(Cm): BSA: Weight(Kg): Quality: AdequateOrder Physician: HUGH MCDOWELL Account #: Procedures: Echocardiographic Report: Transthoracic echocardiogram with complete 2D, M-Mode, and doppler examination. Indications: Evaluate Left Ventricular function. Measurements: 2D/M Mode Doppler Measurement Value Normal Range Measurement Value Normal Range LVIDd 2D 4.2 [ 4.2 - 5.8 ] cm AV Peak Kevin 1.8 [ 100.0 - 170.0 ] cm/sec LVIDs 2D 2.0 [ 2.5 - 4.0 ] cm AV Peak PG 12.0 [ 2.0 - 9.0 ] mmHg LVPWd 2D 1.2 [ 0.6 - 1.0 ] cm LVOT Peak Kevin 1.3 [ 70.0 - 110.0 ] cm/sec IVSd 2D 1.4 [ 0.6 - 1.0 ] cm LVOT Peak PG 7.0 [ 2.0 - 6.0 ] mmHg AoR Diam 2D 3.6 [ 2.6 - 3.4 ] cm TR Peak Kevin 3.3 [ 100.0 - 280.0 ] cm/sec EDV 2D 79.5 [ 62.0 - 150.0 ] ml TR Peak PG 43.0 mmHg ESV 2D 12.4 [ 21.0 - 61.0 ] ml RVSP 53.0 [ 10.0 - 36.0 ] mmHg EF 2D 84.4 [ 52.0 - 72.0 ] percent RA Pressure 10.0 mmHg LA Dimen 2D 3.7 [ 3.0 - 4.0 ] cm Findings: Left Ventricle: Normal left ventricular systolic function. Normal left ventricular cavity size. Sigmoid septum. Ejection fraction is visually estimated at 60 %. Abnormal Diastolic Function. Right Ventricle: Normal right ventricular size. Normal right ventricular systolic function. Left Atrium: The left atrium is normal in size. Right Atrium: The right atrium is normal in size. Mitral Valve: Normal appearance and function of the mitral valve with trace physiologic regurgitation. Aortic Valve: No significant aortic stenosis or insufficiency. Aortic cusps appear mildly calcified. Tricuspid Valve: Normal appearance of the tricuspid valve. The estimated Peak RVSP is 53 mmHg. There is trace tricuspid regurgitation. Pulmonic Valve: Pulmonic valve not well visualized. Pericardium: Normal pericardium with no significant pericardial effusion. Aorta: Normal aortic root. IVC: Normal size and normal respiratory collapse consistent with normal right atrial pressure. Conclusions: Normal left ventricular systolic function. Normal left ventricular cavity size. Sigmoid septum. Ejection fraction is visually estimated at 60 %. Abnormal Diastolic Function. Normal appearance and function of the mitral valve with trace physiologic regurgitation. No significant aortic stenosis or insufficiency. Aortic cusps appear mildly calcified. Normal appearance of the tricuspid valve. pulmonary HTN with the estimated Peak RVSP is 53 mmHg, (but may not be very acurate due to minimal TR). There is trace tricuspid regurgitation. Normal size and normal respiratory collapse consistent with normal right atrial pressure. Electronically Signed By: Alvaro Barton 2018-12-12 13:56:38 PDT
--- NOTE | 2018-12-12 15:54 | CONS ---
DATE OF ADMISSION: 12/11/2018 DATE OF CONSULTATION: TYPE OF CONSULTATION: Pulmonary. REASON FOR CONSULT: Respiratory distress. Thank you, Dr. Hernandez, for this consultation. HISTORY OF PRESENT ILLNESS: This is a 68-year-old gentleman with several-day history of increasing s hortness of breath, orthopnea, PND with recent bowel and bladder incontinence with subsequent presync opal symptoms. No loss of consciousness. No head injury. No nausea. No vomiting. No headache. N o history of trauma. On admission, found to have significant leukocytosis and evidence of renal insu fficiency. Chest x-ray showed bilateral atelectasis. In addition, the patient was mildly hypotensiv e requiring aggressive volume resuscitation and transient vasopressor support. PAST MEDICAL HISTORY: Includes diabetes mellitus, hypertension, hyperlipidemia, atrial fibrillation, salivary gland tumor, status post resection. MEDICATIONS: Per chart include: 1. Digoxin. 2. Atorvastatin. Currently on: 1. Vancomycin. 2. Meropenem. SOCIAL HISTORY: He is nonsmoker. No alcohol, no history of drug use. FAMILY HISTORY: Noncontributory. SYSTEMS REVIEW: A 12-point review of systems is currently negative other than that mentioned above. PHYSICAL EXAMINATION: GENERAL: Elderly-appearing gentleman, appears comfortable at rest, in no acute distress. VITAL SIGNS: Currently afebrile, pulse is 78, blood pressure 105/66, O2 saturation 97% on nasal walter jamila. NECK: Supple. No JVD or lymphadenopathy. CARDIAC: S1, S2. No added sounds or murmurs. CHEST: Diminished air entry bilaterally with rhonchi. ABDOMEN: Soft, nontender. No guarding or rebound. EXTREMITIES: No cyanosis, clubbing, edema. NEUROLOGIC: Grossly intact. No focal deficits. LABORATORY DATA: White count initially 32 now 22.8, hemoglobin 10, platelets of 196. Chemistry: BU N 41, creatinine 0.9. ABG: pH 7.46, pCO2 of 49, pO2 of 75. DIAGNOSTIC DATA: Chest x-ray was reviewed, which demonstrates patchy atelectasis. IMPRESSION: 1. Probable community-acquired pneumonia. 2. Hypoxemic respiratory failure. 3. Presyncopal symptoms. 4. Initial mild renal insufficiency likely secondary to dehydration. The patient will require: 1. Continue broad-spectrum antibiotics. 2. Aspiration precautions. 3. Decrease supplemental O2 as tolerated. 4. Bronchodilator treatment. 5. DVT and GI prophylaxis. Dictated By: PORFIRIO DOYLE MD SV/NTS Conf#: [id number] DID#: [id number] CC: MALIA HERNANDEZ MD; NAM PIPER MD;*End*
[2018-12-12] MEDS: VANCOMYCIN 750 MG (PMX) 250 ML IVPB SCH (16:45)
[2018-12-12] MEDS ORDERED: VANCOMYCIN 1 GM 250 ML IVPB SCH (17:00)
[2018-12-12] MEDS: ATORVASTATIN 10 MG TAB PO SCH (20:09)
[2018-12-13] MEDS: LEVALBUTEROL (NEB) 1.25 MG/0.5 ML AMP HHN SCH ×6 (00:38→20:52)
[2018-12-13] MEDS: IPRATROPIUM (NEB) 0.5 MG/2.5 ML AMP NEB SCH ×6 (00:38→20:52)
[2018-12-13] MEDS: INSULIN ASPART [NOVOLOG] 3 ML PEN SC SCH ×6 (00:53→20:45)
[2018-12-13 02:00] VITALS: BP 102/60; PULSE 90; RESP 20
[2018-12-13] MEDS: MEROPENEM 1 GM/50ML(PMX) 50 ML IVPB SCH ×3 (03:46→21:51)
[2018-12-13] MEDS: VANCOMYCIN 750 MG (PMX) 250 ML IVPB SCH ×2 (04:26→18:49)
[2018-12-13] MEDS: SOD CHLORIDE 0.9% 1,000 ML IV SCH ×2 (07:53→21:13)
[2018-12-13 08:29] VITALS: BP 120/73; PULSE 59; RESP 17
[2018-12-13] MEDS: FENOFIBRATE 145 MG TAB PO SCH (08:31)
[2018-12-13] MEDS: HEPARIN 5,000 UNIT/1 ML VIAL SC SCH ×2 (08:39→20:46)
--- NOTE | 2018-12-13 11:38 | CONS ---
Consult Date/Type/Reason Admit Date/Time Dec 11, 2018 at 13:20 Initial Consult Date Type of Consult Pulmonary Date/Time of Note DATE: 12/13/18 TIME: 11:37 Subjective Patient more comfortable today. Less shortness of breath no respiratory distress. Objective Vital Signs Date Temp Pulse Resp B/P (MAP) Pulse Ox O2 O2 Flow FiO2 Time Delivery Rate 12/13/18 94 20 96 Nasal 2.0 09:04 Cannula 12/13/18 97.6 120/73 08:29 (89) 12/11/18 28 16:46 Intake and Output 12/12/18 12/12/18 12/13/18 1515:00 23:00 07:00 IntakeIntake Total 885 ml 915 ml 890 ml OutputOutput Total 900 ml 1050 ml 300 ml BalanceBalance -15 ml -135 ml 590 ml Exam GENERAL: Well-nourished, well-developed gentleman, on nasal cannula O2 VITAL SIGNS: NECK: Supple. No JVD or lymphadenopathy. CARDIAC: S1, S2, no added sounds or murmurs. CHEST: Diminished air entry bilaterally. ABDOMEN: Soft, nontender. No guarding or rebound. EXTREMITIES: No cyanosis, clubbing, 1+ edema. NEUROLOGIC: Generalized weakness. Vent Setting Fraction of Inspired Oxygen pe: 28 Results/Medications Result Diagram: 12/13/1844812/13/18448 Results 24 hrs Laboratory Tests Test 12/12/18 13:23 12/12/18 17:35 12/12/18 20:08 12/13/18 00:50 Bedside Glucose 87 98 100 102 Test 12/13/18 04:46 12/13/18 04:49 12/13/18 07:00 12/13/18 08:30 Bedside Glucose 94 89 White Blood Count 13.2 #H Red Blood Count 3.71 L Hemoglobin 9.9 L Hematocrit 31.4 L Mean Corpuscular 84.6 Volume Mean Corpuscular 26.7 L Hemoglobin Mean Corpuscular 31.5 L Hemoglobin Concen t Red Cell 16.9 H Distribution Width Platelet Count 187 Mean Platelet 12.3 H Volume Immature 0.800 H Granulocytes % Neutrophils % 84.3 H Lymphocytes % 6.2 L Monocytes % 6.3 Eosinophils % 2.0 Basophils % 0.4 Nucleated Red 0.0 Blood Cells % Immature 0.100 H Granulocytes # Neutrophils # 11.1 H Lymphocytes # 0.8 Monocytes # 0.8 Eosinophils # 0.3 Basophils # 0.1 Nucleated Red 0.0 Blood Cells # Sodium Level 144 Potassium Level 3.9 Chloride Level 103 Carbon Dioxide 31 Level Anion Gap 10 Blood Urea 25 #H Nitrogen Creatinine 0.66 Est Glomerular > 60 Filtrat Rate mL/min Glucose Level 91 Calcium Level 8.9 Phosphorus Level 1.6 L Magnesium Level 1.8 Blood Gas Blood arterial Specimen Source Arterial Blood 12/13/2018 8:03:0 Date Drawn 1 AM Arterial Blood pH 7.430 (Temp corrected) Arterial Blood 44.1 pCO2 (Temp correct) Arterial Blood 73.0 L pO2 (Temp corrected) Arterial Blood 28.6 H HCO3 Arterial Blood 3.8 H Base Excess Arterial Blood 94.3 L Oxygen Saturation Aneesh Test ACCEPTAB Arterial Blood Right Radial Gas Puncture Site Arterial 0.3 Blood Carboxyhemo globin Arterial Blood 0.1 Methemoglobin Blood Gas A-a O2 67.4 H Differential Oxyhemoglobin 93.9 Percent Blood Gas 37.0 Temperature Blood Gas NASAL CANNULA Modality FiO2 27.0 Blood Gas TM Notified Whom Blood Gas 12/13/2018 8:12:2 Notified Time 9 AM Medications Current Medications Vancomycin HCl (Vanco Iv Per Pharmacy) VANCOMYCIN PER PHARMACY PER PROTOCOL XX ; Start 12/11/18 at 15:30 Atorvastatin Calcium (Lipitor) 10 mg QHS PO Last administered on 12/12/18at 20:09; Admin Dose 10 MG; Start 12/11/18 at 21:00 Digoxin (Digoxin) 0.25 mg Q48H PO Last administered on 12/11/18at 21:41; Admin Dose 0.25 MG; Start 12/11/18 at 16:00 Ondansetron HCl (Zofran Inj) 4 mg Q6H PRN IV NAUSEA AND/OR VOMITING; Start 12/11/18 at 16:00 Ipratropium [employer] (Atrovent 0.02% (Neb)) 0.5 mg Q4H RESP THERAPY NEB Last administered on 12/13/18at 09:07; Admin Dose 0.5 MG; Start 12/11/18 at 17:00 Ipratropium [employer] (Atrovent 0.02% (Neb)) 0.5 mg Q2H RESP THERAPY PRN NEB SHORTNESS OF BREATH; Start 12/11/18 at 16:00 Nitroglycerin (Nitroglycerin (Sl Tab) 0.4 Mg) 1 tab Q5M PRN SL CHEST PAIN; Start 12/11/18 at 16:00 Acetaminophen (Tylenol Liquid) 650 mg Q6H PRN PO PAIN LEVEL 1-3 OR FEVER; Start 12/11/18 at 16:00 Heparin Sodium (Porcine) (Heparin (5000 Units/1ml)) 5,000 unit Q12 SC Last administered on 12/13/18at 08:39; Admin Dose 5,000 UNIT; Start 12/11/18 at 21:00 Levalbuterol (Xopenex Neb) 1.25 mg Q4H RESP THERAPY HHN Last administered on 12/13/18at 09:07; Admin Dose 1.25 MG; Start 12/11/18 at 17:00 Sodium Chloride 1,000 ml @ 75 mls/hr [id number] IV Last administered on 12/12/18at 18:53; Admin Dose 75 MLS/HR; Start 12/11/18 at 15:53 IV Flush (NS 3 ml) 3 ml PER PROTOCOL IV ; Start 12/11/18 at 16:00 Ondansetron HCl (Zofran Inj) 4 mg Q6H PRN IV NAUSEA/VOMITING; Start 12/11/18 at 16:00 Fenofibrate (Tricor) 145 mg DAILY PO Last administered on 12/13/18at 08:31; Admin Dose 145 MG; Start 12/12/18 at 09:00 Miscellaneous Information 1 ea NOTE XX ; Start 12/11/18 at 17:00 Glucose (Glutose) 15 gm Q15M PRN PO DECREASED GLUCOSE; Start 12/11/18 at 17:00 Glucose (Glutose) 22.5 gm Q15M PRN PO DECREASED GLUCOSE; Start 12/11/18 at 17:00 Dextrose (D50w Syringe) 25 ml Q15M PRN IV DECREASED GLUCOSE; Start 12/11/18 at 17:00 Dextrose (D50w Syringe) 50 ml Q15M PRN IV DECREASED GLUCOSE; Start 12/11/18 at 17:00 Glucagon (Glucagen) 1 mg Q15M PRN IM DECREASED GLUCOSE; Start 12/11/18 at 17:00 Glucose (Glutose) 15 gm Q15M PRN BUCCAL DECREASED GLUCOSE; Start 12/11/18 at 17:00 Insulin Aspart (Novolog Insulin Pen) NOVOLOG *MILD* ALGORI... Q4 SC ; Start 12/11/18 at 21:00 Vancomycin/Sodium Chloride 250 ml @ 125 mls/hr Q12H IVPB Last administered on 12/13/18at 04:26; Admin Dose 125 MLS/HR; Start 12/12/18 at 16:00 Miscellaneous Information (*Rx Drug Level Order Reminder*) VANCO TR AT 0300 0300 ONCE XX ; Start 12/14/18 at 03:00; Stop 12/14/18 at 03:01 Meropenem/Sodium Chloride 50 ml @ 100 mls/hr Q8 IVPB ; Start 12/13/18 at 14:00 Assessment/Plan Hospital Course (Demo Recall) IMPRESSION: 1. Probable community-acquired pneumonia. 2. Hypoxemic respiratory failure. 3. Presyncopal symptoms. 4. Initial mild renal insufficiency likely secondary to dehydration now resolved.. Plan 1. Continue broad-spectrum antibiotics. 2. Aspiration precautions. 3. Decrease supplemental O2 as tolerated. 4. Bronchodilator treatment. 5. DVT and GI prophylaxis 6. PT eval. May require SNF prior to home PORFIRIO DOYLE MD, [facility] Dec 13, 2018 11:38
[2018-12-13 14:29] VITALS: BP 120/77; PULSE 101; RESP 19
[2018-12-13] MEDS ORDERED: POTASSIUM PHOSPHATE 30 MM in SOD CHLORIDE 0.9% 250 ML IVPB ONE (14:30)
[2018-12-13] MEDS ORDERED: MAGNESIUM SULFATE 2 GM/50 ML 50 ML IVPB ONE ×2 (14:30→22:30)
--- NOTE | 2018-12-13 14:30 | PN ---
Date/Time of Note Date/Time of Note DATE: 12/13/18 TIME: 14:28 Assessment/Plan VTE Prophylaxis Risk score (from Ns)>0 risk: 9 SCD applied (from Nsg): Yes Pharmacological prophylaxis: heparin Lines/Catheters IV Catheter Type (from Nrsg): Central Line Central line still needed: Yes Assessment/Plan Assessment/Plan 68 yo man history of HTN, HLD, DM2, salivary gland cancer s/p resection presents with cough, dyspnea, and weakness found to be in septic shock. #Severe sepsis with septic shock - Most likely aspiration pneumonia. Patient reports choking on soft foods followed by productive cough and fever. - CXR however relatively clear, only minor bibasilar atelectasis - Admitted to ICU on norepinephrine, now weaned off - Vanco and cefepime until cultures grow out. #Dysphagia #Aspiration pneumonia - Failed speech therapy eval - All meds and food through G tube # SCOT - likely secondary to sepsis - now resolved # DM2 -A1C only 5.2 -sliding scale only #HTN -holding antihypertensives for now. #Dyslipidemia -on statin #Atrial fibrillation -rate controlled -resume dig. hold BB 2/2 hypotension - Not on anticoagulation. #Salivary gland malignancy - s/p surgery at [facility] in [place] [address] Huitron # Incontinence - Catherine on admission. Will do trial of void. Patient denies incontinence. dvt ppx;heparin PUD ppx:Pepcid Result Diagram: 12/13/1844812/13/18448 Subjective 24 Hr Interval Summary Free Text/Dictation Patient says he feels poorly. Exam/Review of Systems Exam Vitals Vital Signs Date Temp Pulse Resp B/P (MAP) Pulse Ox O2 O2 Flow FiO2 Time Delivery Rate 12/13/18 89 18 94 Nasal 2.0 12:45 Cannula 12/13/18 97.6 120/73 08:29 (89) 12/11/18 28 16:46 Intake and Output 12/12/18 12/12/18 12/13/18 1515:00 23:00 07:00 IntakeIntake Total 885 ml 915 ml 890 ml OutputOutput Total 900 ml 1050 ml 300 ml BalanceBalance -15 ml -135 ml 590 ml Exam Constitutional: Frail looking male,not in acute distress. HEENT: Head atraumatic and normocephalic. Eyes: Extraocular muscles intact. Anicteric sclerae. Pupils equal bilaterally, reactive to light. NECK: R neck skin graft healthy appearing. CHEST: Coarse bibasilar breath sounds. HEART: S1, S2. Irregularly irregular ABDOMEN: Soft/non tender with no rebound tenderness. Bowel sounds were present. G tube in place clean appearing. EXTREMITIES: No cyanosis, clubbing or edema. SKIN: L anterior thigh skin graft site well healed. Results Results 24hrs Laboratory Tests Test 12/12/18 17:35 12/12/18 20:08 12/13/18 00:50 12/13/18 04:46 Bedside Glucose 98 100 102 94 Test 12/13/18 04:49 12/13/18 07:00 12/13/18 08:30 12/13/18 12:29 White Blood Count 13.2 #H Red Blood Count 3.71 L Hemoglobin 9.9 L Hematocrit 31.4 L Mean Corpuscular 84.6 Volume Mean Corpuscular 26.7 L Hemoglobin Mean Corpuscular 31.5 L Hemoglobin Concen t Red Cell 16.9 H Distribution Width Platelet Count 187 Mean Platelet 12.3 H Volume Immature 0.800 H Granulocytes % Neutrophils % 84.3 H Lymphocytes % 6.2 L Monocytes % 6.3 Eosinophils % 2.0 Basophils % 0.4 Nucleated Red 0.0 Blood Cells % Immature 0.100 H Granulocytes # Neutrophils # 11.1 H Lymphocytes # 0.8 Monocytes # 0.8 Eosinophils # 0.3 Basophils # 0.1 Nucleated Red 0.0 Blood Cells # Sodium Level 144 Potassium Level 3.9 Chloride Level 103 Carbon Dioxide 31 Level Anion Gap 10 Blood Urea 25 #H Nitrogen Creatinine 0.66 Est Glomerular > 60 Filtrat Rate mL/min Glucose Level 91 Calcium Level 8.9 Phosphorus Level 1.6 L Magnesium Level 1.8 Blood Gas Blood arterial Specimen Source Arterial Blood 12/13/2018 8:03:0 Date Drawn 1 AM Arterial Blood pH 7.430 (Temp corrected) Arterial Blood 44.1 pCO2 (Temp correct) Arterial Blood 73.0 L pO2 (Temp corrected) Arterial Blood 28.6 H HCO3 Arterial Blood 3.8 H Base Excess Arterial Blood 94.3 L Oxygen Saturation Aneesh Test ACCEPTAB Arterial Blood Right Radial Gas Puncture Site Arterial 0.3 Blood Carboxyhemo globin Arterial Blood 0.1 Methemoglobin Blood Gas A-a O2 67.4 H Differential Oxyhemoglobin 93.9 Percent Blood Gas 37.0 Temperature Blood Gas NASAL CANNULA Modality FiO2 27.0 Blood Gas TM Notified Whom Blood Gas 12/13/2018 8:12:2 Notified Time 9 AM Bedside Glucose 89 128 Medications Medication Current Medications Vancomycin HCl (Vanco Iv Per Pharmacy) VANCOMYCIN PER PHARMACY PER PROTOCOL XX ; Start 12/11/18 at 15:30 Atorvastatin Calcium (Lipitor) 10 mg QHS PO Last administered on 12/12/18 20:09; Admin Dose 10 MG; Start 12/11/18 at 21:00 Digoxin (Digoxin) 0.25 mg Q48H PO Last administered on 12/11/18 21:41; Admin Dose 0.25 MG; Start 12/11/18 at 16:00 Ondansetron HCl (Zofran Inj) 4 mg Q6H PRN IV NAUSEA AND/OR VOMITING; Start 12/11/18 at 16:00 Ipratropium [place] (Atrovent 0.02% (Neb)) 0.5 mg Q4H RESP THERAPY NEB Last administered on 12/13/18 12:45; Admin Dose 0.5 MG; Start 12/11/18 at 17:00 Ipratropium [place] (Atrovent 0.02% (Neb)) 0.5 mg Q2H RESP THERAPY PRN NEB SHORTNESS OF BREATH; Start 12/11/18 at 16:00 Nitroglycerin (Nitroglycerin (Sl Tab) 0.4 Mg) 1 tab Q5M PRN SL CHEST PAIN; Start 12/11/18 at 16:00 Acetaminophen (Tylenol Liquid) 650 mg Q6H PRN PO PAIN LEVEL 1-3 OR FEVER; Start 12/11/18 at 16:00 Heparin Sodium (Porcine) (Heparin (5000 Units/1ml)) 5,000 unit Q12 SC Last administered on 12/13/18 08:39; Admin Dose 5,000 UNIT; Start 12/11/18 at 21:00 Levalbuterol (Xopenex Neb) 1.25 mg Q4H RESP THERAPY HHN Last administered on 12/13/18 12:45; Admin Dose 1.25 MG; Start 12/11/18 at 17:00 Sodium Chloride 1,000 ml @ 75 mls/hr [id number] IV Last administered on 6/25/19at 18:53; Admin Dose 75 MLS/HR; Start 12/11/18 at 15:53 IV Flush (NS 3 ml) 3 ml PER PROTOCOL IV ; Start 12/11/18 at 16:00 Ondansetron HCl (Zofran Inj) 4 mg Q6H PRN IV NAUSEA/VOMITING; Start 12/11/18 at 16:00 Fenofibrate (Tricor) 145 mg DAILY PO Last administered on 12/13/18at 08:31; Admin Dose 145 MG; Start 12/12/18 at 09:00 Miscellaneous Information 1 ea NOTE XX ; Start 12/11/18 at 17:00 Glucose (Glutose) 15 gm Q15M PRN PO DECREASED GLUCOSE; Start 12/11/18 at 17:00 Glucose (Glutose) 22.5 gm Q15M PRN PO DECREASED GLUCOSE; Start 12/11/18 at 17:00 Dextrose (D50w Syringe) 25 ml Q15M PRN IV DECREASED GLUCOSE; Start 12/11/18 at 17:00 Dextrose (D50w Syringe) 50 ml Q15M PRN IV DECREASED GLUCOSE; Start 12/11/18 at 17:00 Glucagon (Glucagen) 1 mg Q15M PRN IM DECREASED GLUCOSE; Start 12/11/18 at 17:00 Glucose (Glutose) 15 gm Q15M PRN BUCCAL DECREASED GLUCOSE; Start 12/11/18 at 17:00 Insulin Aspart (Novolog Insulin Pen) NOVOLOG *MILD* ALGORI... Q4 SC ; Start 12/11/18 at 21:00 Vancomycin/Sodium Chloride 250 ml @ 125 mls/hr Q12H IVPB Last administered on 12/13/18at 04:26; Admin Dose 125 MLS/HR; Start 12/12/18 at 16:00 Miscellaneous Information (*Rx Drug Level Order Reminder*) VANCO TR AT 0300 0300 ONCE XX ; Start 12/14/18 at 03:00; Stop 12/14/18 at 03:01 Meropenem/Sodium Chloride 50 ml @ 100 mls/hr Q8 IVPB Last administered on 12/13/18at 14:21; Admin Dose 100 MLS/HR; Start 12/13/18 at 14:00 Magnesium Sulfate 50 ml @ 25 mls/hr ONCE ONCE IVPB ; Start 12/13/18 at 14:30; Stop 12/13/18 at 16:29 Potassium Phosphate 30 mm/ Sodium Chloride 260 ml @ 65 mls/hr ONCE ONCE IVPB ; Start 12/13/18 at 14:30; Stop 12/13/18 at 18:29 MALIA HERNANDEZ MD Dec 13, 2018 14:30
[2018-12-13] MEDS: DIGOXIN 0.25 MG TAB PO SCH (16:57)
[2018-12-13 20:02] VITALS: BP 124/82; PULSE 100; RESP 18
[2018-12-13] MEDS: ATORVASTATIN 10 MG TAB PO SCH (20:41)
[2018-12-14] MEDS: INSULIN ASPART [NOVOLOG] 3 ML PEN SC SCH ×4 (00:33→12:52)
[2018-12-14] MEDS: LEVALBUTEROL (NEB) 1.25 MG/0.5 ML AMP HHN SCH ×4 (00:44→13:00)
[2018-12-14] MEDS: IPRATROPIUM (NEB) 0.5 MG/2.5 ML AMP NEB SCH ×4 (00:44→13:00)
[2018-12-14] MEDS: SOD CHLORIDE 0.9% 1,000 ML IV SCH (01:20)
[2018-12-14 02:34] VITALS: BP 114/82; PULSE 98; RESP 18
[2018-12-14] MEDS ORDERED: VANCOMYCIN 1 GM 250 ML IVPB SCH (04:00)
[2018-12-14] MEDS: MEROPENEM 1 GM/50ML(PMX) 50 ML IVPB SCH (06:55)
[2018-12-14 08:13] VITALS: BP 110/77; PULSE 100; RESP 18
[2018-12-14] MEDS ORDERED: FENOFIBRATE 145 MG TAB GTB SCH (09:00)
[2018-12-14] MEDS: HEPARIN 5,000 UNIT/1 ML VIAL SC SCH (09:26)
--- NOTE | 2018-12-14 11:22 | CONS ---
Consult Date/Type/Reason Admit Date/Time Dec 11, 2018 at 13:20 Initial Consult Date Type of Consult Pulmonary Date/Time of Note DATE: 12/14/18 TIME: 11:22 Subjective Patient comfortable awake alert and oriented. No respiratory distress. Objective Vital Signs Date Temp Pulse Resp B/P (MAP) Pulse Ox O2 O2 Flow FiO2 Time Delivery Rate 12/14/18 Nasal 2.0 10:12 Cannula 12/14/18 95 09:41 12/14/18 86 20 09:41 12/14/18 97.7 110/77 08:13 (88) 12/11/18 28 16:46 Intake and Output 12/13/18 12/13/18 12/14/18 1515:00 23:00 07:00 IntakeIntake Total 810 ml 1000 ml OutputOutput Total 1300 ml 900 ml 450 ml BalanceBalance -1300 ml -90 ml 550 ml Exam GENERAL: Well-nourished, well-developed gentleman, on nasal cannula O2 VITAL SIGNS: NECK: Supple. No JVD or lymphadenopathy. CARDIAC: S1, S2, no added sounds or murmurs. CHEST: Diminished air entry bilaterally. ABDOMEN: Soft, nontender. No guarding or rebound. EXTREMITIES: No cyanosis, clubbing, 1+ edema. NEUROLOGIC: Generalized weakness. Vent Setting Fraction of Inspired Oxygen pe: 28 Results/Medications Result Diagram: 12/13/18 0449 12/13/18 0449 Results 24 hrs Laboratory Tests Test 12/13/18 12:29 12/13/18 17:40 12/13/18 20:39 12/14/18 00:28 Bedside Glucose 128 176 175 157 Test 12/14/18 03:05 12/14/18 04:48 12/14/18 09:32 Vancomycin Level 8.3 L Trough Bedside Glucose 125 141 Medications Current Medications Vancomycin HCl (Vanco Iv Per Pharmacy) VANCOMYCIN PER PHARMACY PER PROTOCOL XX ; Start 12/11/18 at 15:30 Atorvastatin Calcium (Lipitor) 10 mg QHS PO Last administered on 12/13/18at 20:41; Admin Dose 10 MG; Start 12/11/18 at 21:00 Digoxin (Digoxin) 0.25 mg Q48H PO Last administered on 12/13/18at 16:57; Admin Dose 0.25 MG; Start 12/11/18 at 16:00 Ondansetron HCl (Zofran Inj) 4 mg Q6H PRN IV NAUSEA AND/OR VOMITING; Start 12/11/18 at 16:00 Ipratropium [place] (Atrovent 0.02% (Neb)) 0.5 mg Q4H RESP THERAPY NEB Last administered on 12/14/18at 09:41; Admin Dose 0.5 MG; Start 12/11/18 at 17:00 Ipratropium [place] (Atrovent 0.02% (Neb)) 0.5 mg Q2H RESP THERAPY PRN NEB SHORTNESS OF BREATH; Start 12/11/18 at 16:00 Nitroglycerin (Nitroglycerin (Sl Tab) 0.4 Mg) 1 tab Q5M PRN SL CHEST PAIN; Start 12/11/18 at 16:00 Acetaminophen (Tylenol Liquid) 650 mg Q6H PRN PO PAIN LEVEL 1-3 OR FEVER Last administered on 12/14/18at 07:02; Admin Dose 650 MG; Start 12/11/18 at 16:00 Heparin Sodium (Porcine) (Heparin (5000 Units/1ml)) 5,000 unit Q12 SC Last administered on 12/14/18 09:26; Admin Dose 5,000 UNIT; Start 12/11/18 at 21:00 Levalbuterol (Xopenex Neb) 1.25 mg Q4H RESP THERAPY HHN Last administered on 12/14/18 09:40; Admin Dose 1.25 MG; Start 12/11/18 at 17:00 Sodium Chloride 1,000 ml @ 75 mls/hr [id number] IV Last administered on 12/14/18 01:20; Admin Dose 75 MLS/HR; Start 12/11/18 at 15:53 IV Flush (NS 3 ml) 3 ml PER PROTOCOL IV ; Start 12/11/18 at 16:00 Ondansetron HCl (Zofran Inj) 4 mg Q6H PRN IV NAUSEA/VOMITING; Start 12/11/18 at 16:00 Miscellaneous Information 1 ea NOTE XX ; Start 12/11/18 at 17:00 Glucose (Glutose) 15 gm Q15M PRN PO DECREASED GLUCOSE; Start 12/11/18 at 17:00 Glucose (Glutose) 22.5 gm Q15M PRN PO DECREASED GLUCOSE; Start 12/11/18 at 17:00 Dextrose (D50w Syringe) 25 ml Q15M PRN IV DECREASED GLUCOSE; Start 12/11/18 at 17:00 Dextrose (D50w Syringe) 50 ml Q15M PRN IV DECREASED GLUCOSE; Start 12/11/18 at 17:00 Glucagon (Glucagen) 1 mg Q15M PRN IM DECREASED GLUCOSE; Start 12/11/18 at 17:00 Glucose (Glutose) 15 gm Q15M PRN BUCCAL DECREASED GLUCOSE; Start 12/11/18 at 17:00 Insulin Aspart (Novolog Insulin Pen) NOVOLOG *MILD* ALGORI... Q4 SC Last administered on 12/14/18at 09:39; Admin Dose 1 UNIT; Start 12/11/18 at 21:00 Meropenem/Sodium Chloride 50 ml @ 100 mls/hr Q8 IVPB Last administered on 12/14/18at 06:55; Admin Dose 100 MLS/HR; Start 12/13/18 at 14:00 Vancomycin HCl 250 ml @ 125 mls/hr Q12H IVPB Last administered on 12/14/18at 04:43; Admin Dose 125 MLS/HR; Start 12/14/18 at 04:00 Miscellaneous Information (*Rx Drug Level Order Reminder*) VANCOMYCIN TROUGH L EVEL 1500 ONCE XX ; Start 12/15/18 at 15:00; Stop 12/15/18 at 15:01 Fenofibrate (Tricor) 145 mg DAILY GTB Last administered on 12/14/18at 09:28; Admin Dose 145 MG; Start 12/14/18 at 09:00 Assessment/Plan Hospital Course (Demo Recall) IMPRESSION: 1. Probable community-acquired pneumonia. 2. Hypoxemic respiratory failure. 3. Presyncopal symptoms. 4. Initial mild renal insufficiency likely secondary to dehydration now resolved.. Plan 1. Continue broad-spectrum antibiotics. 2. Aspiration precautions. 3. Decrease supplemental O2 as tolerated. 4. Bronchodilator treatment. 5. DVT and GI prophylaxis Agree with DC to SNF today. PORFIRIO DOYLE MD, [facility] Dec 14, 2018 11:22
[2018-12-14 15:28] VITALS: BP_SYST 152; BP_SYST 153; BP_DIAS 90; BP_DIAS 96; PULSE 84; RESP 17
[2018-12-14] MEDS ORDERED: LEVOFLOXACIN 750MG/D5W (PMX) 150 ML IVPB SCH (15:30)
--- NOTE | 2018-12-14 16:57 | DS ---
Date/Time of Note Date/Time of Note DATE: 12/14/18 TIME: 16:54 Discharge Summary Admission/Discharge Info Admit Date/Time Dec 11, 2018 at 13:20 Discharge Date/Time Dec 14, 2018 Discharge Diagnosis Dehydration Patient Condition: Good Consults Dr Moralez, pulmonary medicine Procedures None Hx of Present Illness This is a 68-year-old male with a history of diabetes, hypertension, dyslipidemia, atrial fibrillation, 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 Patient also reported that he has been feeling having a pneumonia and has been having fevers for a while. Patient was feeling overly tired and has been passing out lately. Patient also has had multiple emergency visit lately. He denied loss of consciousness, speech difficulties, vision changes, numbness, tingling, headache, nausea, vomiting, abdominal pain, or other constitutional symptoms. In the emergency room, patient was noted with the initial white count 32,000, BUN 83, creatinine 1.59. Chest x-ray showed bibasilar atelectasis. In the emergency room, patient was noted with hypotension despite sepsis fluid bolus requiring central line insertion and Levophed administration. He was also given azithromycin and ceftriaxone. Hospital Course The patient was admitted to ICU initially very hypotensive briefly requiring vasopressors. Started empirically on vancomycin and cefepime. Blood pressure normalized within hours. He was seen by our speech therapist who determined his swallow was very weak. He was kept NPO, all feeds and meds given via NG tube. The patient remained awake and alert. Blood cultures and urine cultures all negative. Will plan to discharge to SNF with a course of levofloxacin for possible atypical pneumonia. Home Meds Reported Medications Lisinopril* (Lisinopril*) 40 Mg Tablet, 40 MG PO DAILY, #30 TAB 12/03/18 Atorvastatin Calcium (Atorvastatin Calcium) 10 Mg Tablet, 10 MG PO QHS, #30 TAB 12/03/18 Pioglitazone Hcl* (Pioglitazone Hcl*) 30 Mg Tablet, 30 MG PO DAILY, TAB 12/03/18 Glimepiride* (Glimepiride*) 4 Mg Tablet, 4 MG PO WITH BREAKFAST, TAB 12/03/18 Fenofibrate, Micronized* (Fenofibrate*) 160 Mg Tablet, 160 MG PO DAILY, TAB 12/03/18 Digoxin* (Digitek*) 250 Mcg Tablet, 0.25 MG PO Q48H, TAB 12/03/18 Metformin Hcl* (Metformin Hcl*) 1,000 Mg Tablet, 1000 MG PO WITH BREAKFAST DINNE, #60 TAB 12/03/18 Metoprolol Succinate* (Toprol XL*) 100 Mg Tab.sr.24h, 100 MG PO BID, #30 TAB 12/03/18 Primary Care Provider Ger Chung MD Time spent on discharge: > 30 minutes Pending Labs Laboratory Tests Test 12/13/18 17:40 12/13/18 20:39 12/14/18 00:28 12/14/18 03:05 Bedside 176 175 157 Glucose mg/dL (70-220) mg/dL (70-220) mg/dL (70-220) Vancomycin 8.3 Level Trough ug/ml (10.0-20 .0) Test 12/14/18 04:48 12/14/18 09:32 12/14/18 12:48 Bedside 125 141 190 Glucose mg/dL (70-220) mg/dL (70-220) mg/dL (70-220) MALIA HERNANDEZ MD Dec 14, 2018 16:57
== END 2018-12-14 17:35 | DRG 871 ==
LOC: E/R 11:14 → ICU 13:20 → EDBEDREQSVC 14:02 → SUATTDRO 15:23 → 2NE 12-12 21:40
PROVIDERS: ADMIT Internal Medicine; ATTEND Internal Medicine
DX: A41.9 Sepsis, unspecified organism (principal); R65.21 Severe sepsis with septic shock; J69.0 Pneumonitis due to inhalation of food and vomit; N17.9 Acute kidney failure, unspecified; E11.9 Type 2 diabetes mellitus without complications; I10 Essential (primary) hypertension; E78.5 Hyperlipidemia, unspecified; I48.0 Paroxysmal atrial fibrillation; R13.10 Dysphagia, unspecified; R32 Unspecified urinary incontinence; R55 Syncope and collapse; Z85.858 Personal history of malignant neoplasm of other endocrine glands
CPT/HCPCS: 36415; 36600; 71045; 76937; 80048; 80053; 80061; 80202; 82803; 82962; 83036; 83605; 83735; 84100; 85025; 87070; 87081; 87086; 92526; 92610; 93005; 93306; 94640; 94664; 96365; 96368; 97162; C1751; J0456; J0696; J1644; J1815; J1956; J2185; J3370; J3475; J3480; J7030; J7050